=== PATIENT | male | born 1955 | race African-American/Black ===

== ENCOUNTER 2017-08-08 08:21 | Emergency (ER) | payer OTHER ==
[2017-08-08 08:26] VITALS: TEMP 97.3; BMI 24.3
--- NOTE | 2017-08-08 08:49 | PDOC ---
History of Present Illness - General Chief Complaint: Pain, Acute Stated Complaint: ABD PAIN Time Seen by Provider: 08/08/17 08:46 - History of Present Illness Initial Comments: 08/08/17 09:05 62 yo M with h/o HTN, HLD, CAD, MD s/p stent placement x 1 who presents with abdominal pain. Patient reports sharp paroxysms of generalized abdominal pain beginning at 0530 this AM upon awakening from sleep. No identifiable triggers. Pain resolved spontaneously around 0700, following BM x 1. BM of normal consistency with absent blood visualized per rectum. Reports constipation for past month relieved with Milk of Magnesia. Attempted Zantac and baking soda for symptom relief. Denies N/V, F/C, Chest pain, SOB, abdominal pain, diarrhea , back pain, lightheadedness, weakness, sensory change, vertigo. Past History - Past Medical History Allergies/Adverse Reactions: Allergies Allergy/AdvReac Type Severity Reaction Status Date / Time No Known Allergies Allergy Verified 08/08/17 08:22 Home Medications: Ambulatory Orders Aspirin [ASA -] 81 mg PO DAILY 08/08/17 Carvedilol 12.5 mg PO BID 08/08/17 Chlorthalidone 25 mg PO DAILY 08/08/17 Latanoprost 0.005% Eye Drops [Xalatan 0.005% Eye Drops -] 2 drop OD HS 08/08/17 Lisinopril [Zestril] 40 mg PO DAILY 08/08/17 Multivit-Min/FA/Lycopen/Lutein [Centrum Silver Men Tablet] 1 each PO DAILY 08/08 Rosuvastatin Calcium [Crestor] 40 mg PO HS 08/08/17 Cardiac Disorders: Yes (cad) COPD: No HTN: Yes Hypercholesterolemia: Yes Other medical history: early glucoma - Surgical History Cardiac Surgery: Yes (stents) - Suicide/Smoking/Psychosocial Hx Smoking History: Never smoked Have you smoked in the past 12 months: No Information on smoking cessation initiated: No Hx Alcohol Use: No Drug/Substance Use Hx: No Review of Systems - Review of Systems Comments:: 08/08/17 08:48 GENERAL/CONSTITUTIONAL: No fever or chills. No weakness. HEAD, EYES, EARS, NOSE AND THROAT: No change in vision. No ear pain or discharge. No sore throat.- CARDIOVASCULAR: No chest pain or shortness of breath RESPIRATORY: No cough, wheezing, or hemoptysis. GASTROINTESTINAL: No nausea, vomiting, diarrhea or constipation. GENITOURINARY: No dysuria, frequency, or change in urination. MUSCULOSKELETAL: No joint or muscle swelling or pain. No neck or back pain. SKIN: No rash NEUROLOGIC: No headache, vertigo, loss of consciousness, or change in strength/ sensation. ENDOCRINE: No increased thirst. No abnormal weight change HEMATOLOGIC/LYMPHATIC: No anemia, easy bleeding, or history of blood clots. ALLERGIC/IMMUNOLOGIC: No hives or skin allergy. *Physical Exam - Vital Signs Last Vital Signs Temp Pulse Resp BP Pulse Ox 97.3 F L 73 18 101/65 100 08/08/17 08:22 08/08/17 08:22 08/08/17 08:22 08/08/17 08:22 08/08/17 08:22 - Physical Exam Comments: 08/08/17 08:49 GENERAL: Awake, alert, and fully oriented, in no acute distress HEAD: No signs of trauma, normocephalic, atraumatic EYES: PERRLA, EOMI, sclera anicteric, conjunctiva clear ENT: Hearing grossly normal, nares patent, oropharynx clear without exudates. Moist mucosa NECK: Normal ROM, supple, no lymphadenopathy, JVD, or masses LUNGS: No distress, speaks full sentences, clear to auscultation bilaterally HEART: Regular rate and rhythm, normal S1 and S2, no murmurs, rubs or gallops, peripheral pulses normal and equal bilaterally. ABDOMEN: Soft, nontender, normoactive bowel sounds. No guarding, no rebound. + 5 x 5 cm LLQ lipoma. Neg CVA ttp . Neg suprapubic ttp. EXTREMITIES : Normal inspection, Normal range of motion, no edema. No clubbing or cyanosis. SKIN: Warm, Dry, normal turgor, no rashes or lesions noted. ED Treatment Course - LABORATORY CBC & Chemistry Diagram: 08/08/17 09:15 08/08/17 09:15 Medical Decision Making - Medical Decision Making 08/08/17 08:53 62 yo M with h/o HTN, HLD, CAD, MD s/p stent placement x 1 who presents with abdominal pain. Patient reports sharp paroxysms of generalized abdominal pain beginning at 0530 this AM upon awakening from sleep. No identifiable triggers. Pain resolved spontaneously around 0700, following BM x 1. BM of normal consistency with absent blood visualized per rectum. Reports constipation for past month relieved with Milk of Magnesia. Attempted Zantac and baking soda for symptom relief. Denies N/V, F/C, Chest pain, SOB, abdominal pain, diarrhea , back pain, lightheadedness, weakness, sensory change, vertigo. ED Course: CBC, CMP, Lipase, Trop, UA, EKG: NSR with absent DOROTEO, STD, or TWI. 08/08/17 11:28 CBC, CMP: Unremarkable Trop: Neg UA: neg Patient stable and ready for d/c with strict return precautions. Will f/u with GI. *DC/Admit/Observation/Transfer Diagnosis at time of Disposition: Abdominal pain Qualifiers: Abdominal location: generalized Qualified Code(s): R10.84 - Generalized abdominal pain - Discharge Dispostion Disposition: HOME Condition at time of disposition: Stable Admit: No - Referrals Referrals: Boom Gonzales MD [Staff Physician] - - Patient Instructions Printed Discharge Instructions: DI for Abdominal Pain-Adult Additional Instructions: Please return to the emergency department with any new or worsening symptoms or concerns. Recommend taking daily Miralax and increase PO water intake. - Post Discharge Activity - Attestations Physician Attestion: 08/08/17 11:30 I attest to the information provided in this note.
[2017-08-08] MEDS ORDERED: MAG HYDROX/AL HYDROX/SIMETH 30 ML UNIT-DOSE CUP PO ONE (09:10)
[2017-08-08] MEDS ORDERED: SODIUM CHLORIDE 1,000 ML IV STA (09:14)
[2017-08-08] MEDS ORDERED: FAMOTIDINE 20 MG/50 ML IVPB 20 MG/50 ML MG IVPB ONE (09:27)
[2017-08-08] MEDS ORDERED: MAG HYDROX/AL HYDROX/SIMETH 30 ML UNIT-DOSE CUP ONE (09:27)
[2017-08-08] MEDS ORDERED: FAMOTIDINE IV 20 MG/12 ML VIAL IVPUSH SCH (10:00)
[2017-08-08 10:14] LABS: BASOPHIL 0.8 % (0-2.0); EOSINOPHIL 1.6 % (0-4.5); MCHC 33.9 g/dl (32.0-35.9); MEAN CELL VOLUME 82.4 fl (80-96); MEAN PLT VOLUME 7.1 fl (7.5-11.1); NEUTROPHILS 57.5 % (42.8-82.8); PLATELET COUNT 214 K/MM3 (134-434); RDW 14.6 % (11.9-15.9); WHITE BLOOD COUNT 4.5 K/mm3 (4.0-10.0)
[2017-08-08 10:22] LABS: URINE APPEARANCE CLOUDY; URINE BILIRUBIN NEGATIVE (NEGATIVE); URINE BLOOD NEGATIVE (NEGATIVE); URINE COLOR YELLOW; URINE GLUCOSE (UA) NEGATIVE (NEGATIVE); URINE KETONE NEGATIVE (NEGATIVE); URINE LEUK ESTERASE NEGATIVE (NEGATIVE); URINE NITRITE NEGATIVE (NEGATIVE); URINE PROTEIN NEGATIVE (NEGATIVE); URINE UROBILINOGEN NEGATIVE mg/dL (0.2-1.0)
[2017-08-08 10:45] LABS: TROPONIN I 0.04 ng/ml (0.00-0.05)
[2017-08-08 10:46] LABS: ALBUMIN 3.7 g/dl (3.4-5.0); ANION GAP 5 (8-16); CO2 35 mmol/L (21-32); CREATININE 1.3 mg/dL (0.7-1.3); GLUCOSE,RANDOM 88 mg/dL (74-106); SGOT/AST 26 U/L (15-37); SGPT/ALT 28 U/L (12-78)
[2017-08-08 10:47] LABS: ALK PHOS 47 U/L (45-117); BILIRUBIN,TOTAL 0.7 mg/dL (0.2-1.0); TOT PROT 7.1 g/dl (6.4-8.2)
--- NOTE | 2017-08-08 11:32 | EKG ---
Test Reason : Blood Pressure : / mmHG Vent. Rate : 067 BPM Atrial Rate : 067 BPM P-R Int : 168 ms QRS Dur : 086 ms QT Int : 406 ms P-R-T Axes : 083 032 053 degrees QTc Int : 429 ms NORMAL SINUS RHYTHM POSSIBLE INFERIOR INFARCT , AGE UNDETERMINED ABNORMAL ECG NO PREVIOUS ECGS AVAILABLE Confirmed by JERI CAVAZOS MD ([id number]) on 08/08/2017 11:31:59 AM Referred By: Confirmed By:JERI CAVAZOS MD
[2017-08-08 11:33] LABS: INR 1.19 (0.82-1.09); PROTHROMBIN TIME (PATIENT) 13.4 SEC (9.98-11.88)
--- NOTE | 2017-08-08 11:35 | PDOC ---
Attending Attestation - Resident Resident Name: Dez Wilsonson - ED Attending Attestation I have performed the following: I have examined & evaluated the patient, The case was reviewed & discussed with the resident, I agree w/resident's findings & plan, Exceptions are as noted - HPI HPI: 08/08/17 11:32 62-year-old male history of constipation here today complaining of generalized abdominal pain. Started this a.m. lasted a few hours was relieved after having a large bowel movement with gas and stools loose at that time. He did take stool softeners at home prior to having a bowel movement no fever chills no nausea no vomiting no urinary complaints. Denies chest pain shortness of breath pain was abeba-umbilical and radiated to the right and the left. No prior abdominal surgeries - Physicial Exam PE: 08/08/17 11:33 Awake alert no acute distress lungs are clear bilaterally heart is regular without murmurs rubs or gallops abdomen is soft nontender no palpable mass skin is warm and dry neuro alert oriented 3 gait is normal - Medical Decision Making 08/08/17 11:34 Patient symptoms are resolved on presentation differential includes gas pain, constipation, UTI or Vidal, renal colic less likely as patient has no prior history. Plan labs lipase UA we'll give antacids and Maalox and reassess Patient's symptoms are completely resolved labs are unremarkable EKG is normal will DC home with follow-up with Dr. Gonzales for gastroenterology and his primary care doctor
[2017-08-08 11:48] VITALS: BP 117/65; PULSE 70
[2017-08-08 14:35] LABS: URINE LEUK ESTERASE Negative (NEGATIVE)
== END 2017-08-08 11:48 | disposition home or self-care (01) ==
LOC: JER 08:21
PROC: 3E033GC Introduction of Other Therapeutic Substance into Peripheral Vein, Percutaneous Approach (ICD-10-PCS; principal; 2017-08-08)
PROC: 3E0337Z Introduction of Electrolytic and Water Balance Substance into Peripheral Vein, Percutaneous Approach (ICD-10-PCS; 2017-08-08)
DX: R10.84 Generalized abdominal pain (principal); I25.10 Atherosclerotic heart disease of native coronary artery without angina pectoris; I10 Essential (primary) hypertension; I25.2 Old myocardial infarction; E78.5 Hyperlipidemia, unspecified
CPT/HCPCS: 36415; 80053; 81003; 83690; 84484; 85025; 85610; 93005; 93010; 99284-25

== ENCOUNTER 2024-03-08 15:35 | Emergency (ER) | payer OTHER ==
[2024-03-08 15:50] VITALS: BP 115/49; PULSE 75; RESP 18; BMI 32.4
[2024-03-08] MEDS ORDERED: MORPHINE SULFATE 2 MG/ML SYRINGE ONE (17:11)
[2024-03-08] MEDS: morphine SULFATE 4 MG/ML VIAL IVPUSH ONE (17:27)
[2024-03-08] MEDS: SODIUM CHLORIDE 0.9% 500 ML INFUS.BAG IV ONE ×2 (17:28→20:28)
[2024-03-08 17:30] LABS: BASO % 0.4 % (0-2.0); EOS % 0.6 % (0-4.5); HEMATOCRIT 39.9 % (35.4-49); HEMOGLOBIN 13.8 GM/dL (11.7-16.9); LYMPH % 9.5 % (8-40); MCH 28.8 pg (25.7-33.7); MCHC 34.7 g/dl (32.0-35.9); MEAN PLT VOLUME 6.5 fl (7.5-11.1); MONO % 7.2 % (3.8-10.2); NEUT % 82.3 % (42.8-82.8); PLATELET COUNT 253 10^3/uL (134-434); RBC 4.81 M/mm3 (4.00-5.60); RDW 15.3 % (11.9-15.9); WHITE BLOOD COUNT 10.4 K/mm3 (4.0-10.0)
[2024-03-08 17:51] LABS: CHLORIDE 104 mmol/L (98-107); SODIUM 140 mmol/L (136-145)
[2024-03-08 17:53] LABS: ALBUMIN 3.8 g/dl (3.4-5.0); BLOOD UREA NITROGEN 19.7 mg/dL (7-18); CALCIUM 9.9 mg/dL (8.5-10.1); CO2 29 mmol/L (21-32); GLUCOSE,RANDOM 99 mg/dL (74-106)
[2024-03-08 17:55] LABS: ANION GAP 7 mmol/L (4-13); POTASSIUM 2.9 mmol/L (3.5-5.1)
[2024-03-08 17:56] LABS: CREATININE 1.4 mg/dL (0.55-1.3); SGPT/ALT 26 U/L (13-61)
[2024-03-08 17:57] LABS: SGOT/AST 25 U/L (15-37)
[2024-03-08 17:58] LABS: BILIRUBIN,TOTAL 0.6 mg/dL (0.2-1); TOT PROT 7.5 g/dl (6.4-8.2)
[2024-03-08 17:59] LABS: ALK PHOS 57 U/L (45-117)
[2024-03-08 18:49] LABS: CHLORIDE 107 mmol/L (98-107); SODIUM 141 mmol/L (136-145)
[2024-03-08 18:50] LABS: CALCIUM 9.1 mg/dL (8.5-10.1)
[2024-03-08 18:51] LABS: BLOOD UREA NITROGEN 20.2 mg/dL (7-18); CO2 29 mmol/L (21-32); GLUCOSE,RANDOM 95 mg/dL (74-106)
[2024-03-08 18:54] LABS: CREATININE 1.3 mg/dL (0.55-1.3)
[2024-03-08 18:55] LABS: ANION GAP 6 mmol/L (4-13); POTASSIUM 2.6 mmol/L (3.5-5.1)
[2024-03-08] MEDS ORDERED: KCL 10 MEQ IVPB 20 MEQ/200 ML INFUS.BAG IVPB ONE (19:16)
[2024-03-08] MEDS ORDERED: POTASSIUM CHLORIDE TABS 20 MEQ TABLET.ER (FP) PO ONE ×2 (19:16→20:36)
[2024-03-08] MEDS ORDERED: LIDOCAINE HCL 2% JELLY 6 ML TP ONE (19:23)
[2024-03-08] MEDS: POTASSIUM CHLORIDE TABS 20 MEQ TABLET.ER (FP) PO ONE (19:37)
[2024-03-08] MEDS: KCL 10 MEQ IVPB 10 MEQ/100 ML INFUS.BAG IVPB SCH (20:28)
[2024-03-08] MEDS: POTASSIUM CHLORIDE ORAL LIQUID 20 MEQ/15 ML PO ONE (20:42)
== END 2024-03-08 20:43 | disposition home or self-care (01) ==
LOC: JER 15:35
PROC: 3E033NZ Introduction of Analgesics, Hypnotics, Sedatives into Peripheral Vein, Percutaneous Approach (ICD-10-PCS; principal; 2024-03-08)
DX: K59.00 Constipation, unspecified (principal); K62.89 Other specified diseases of anus and rectum
CPT/HCPCS: 36415; 80048; 80053; 85025; 99284-25